=== PATIENT | female | born 1970 | race American Indian/Alaskan Native ===

== ENCOUNTER 2017-01-01 15:13 | Emergency (ER) | payer OTHER ==
[2017-01-01 15:15] VITALS: BMI 59.8
[2017-01-01 15:26] VITALS: TEMP 98.4
--- NOTE | 2017-01-01 16:33 | ED PDOC ---
Arrival/HPI - General Chief Complaint: Upper Extremity Problem/Injury Time Seen by Provider: 01/01/17 15:14 - History of Present Illness Narrative History of Present Illness (Text): 01/01/17 16:31 46 yo femlae, hx of sleep apnea, morbid obseity, presnets with left sided neck pain and shoulder pain. pt reports she woke up with symptoms. denies trauma. pt states pain worse to left lateral neck. no fevers, cp, sob, or other complaints. Past Medical History - Provider Review Nursing Documentation Reviewed: Yes - Infectious Disease Hx of Infectious Diseases: None - Cardiac Hx Congestive Heart Failure: Yes (on O2 2LPM) Hx Hypertension: Yes - Endocrine/Metabolic Hx Diabetes Mellitus Type 2: Yes - Psychiatric Hx Substance Use: No - Surgical History Hx Cardiac Catheterization: Yes Hx Section: Yes (x1) Other/Comment: R foot sx. Myomectomy - Anesthesia Hx Anesthesia: Yes Hx Anesthesia Reactions: No Hx Malignant Hyperthermia: No Family/Social History - Physician Review Nursing Documentation Reviewed: Yes Family/Social History: Unknown Family HX Smoking Status: Never Smoked Hx Alcohol Use: No Hx Substance Use: No Allergies/Home Meds Allergies/Adverse Reactions: Allergies No Known Allergies Allergy (Verified 01/01/17 15:15) Home Medications: Home Meds Medication Instructions Recorded Confirmed Fluticasone/Salmeterol [Advair 1 puff DAILY 01/01/17 01/01/17 250-50 Diskus] Furosemide [Lasix] 40 mg PO DAILY 01/01/17 01/01/17 Metoprolol Succinate [Toprol XL] 500 mg PO DAILY 01/01/17 01/01/17 Simvastatin [Simvastatin] 40 mg PO DAILY 01/01/17 01/01/17 diltiaZEM [Cardizem] 30 mg PO DAILY 01/01/17 01/01/17 Review of Systems - Review of Systems Constitutional: Normal Eyes: Normal ENT: Normal Respiratory: Normal Cardiovascular: Normal Gastrointestinal: Normal Genitourinary Female: Normal Musculoskeletal: Neck Pain, Other (shoulder pain) Skin: Normal Neurological: Normal Endocrine: Normal Hemo/Lymphatic: Normal Psychiatric: Normal Physical Exam Vital Signs Temp Pulse Resp BP Pulse Ox 01/01/17 17:06 82 17 156/86 H 98 01/01/17 16:49 89 18 158/96 H 98 01/01/17 15:21 98.4 F 96 H 18 166/105 H 100 Temperature: Afebrile Blood Pressure: Normal Pulse: Regular Respiratory Rate: Normal Appearance: Positive for: Well-Appearing, Non-Toxic, Comfortable Pain Distress: None Mental Status: Positive for: Alert and Oriented X 3 - Systems Exam Head: Present: Atraumatic, Normocephalic Pupils: Present: PERRL Extroacular Muscles: Present: EOMI Conjunctiva: Present: Normal Mouth: Present: Moist Mucous Membranes Neck: Present: Paraspinal Tenderness (left sided). No: Normal Range of Motion ( decreased 2/2 pain), MIDLINE TENDERNESS Respiratory/Chest: Present: Clear to Auscultation, Good Air Exchange. No: Respiratory Distress, Accessory Muscle Use Cardiovascular: Present: Regular Rate and Rhythm, Normal S1, S2. No: Murmurs Abdomen: Present: Normal Bowel Sounds. No: Tenderness, Distention, Peritoneal Signs Back: Present: Normal Inspection Upper Extremity: Present: Normal Inspection, NORMAL PULSES, Tenderness (mild left shoulder), Neurovascularly Intact. No: Cyanosis, Edema, Swelling Lower Extremity: Present: Normal Inspection. No: Edema Neurological: Present: GCS=15, CN II-XII Intact, Speech Normal Skin: Present: Warm, Dry, Normal Color. No: Rashes Psychiatric: Present: Alert, Oriented x 3, Normal Insight, Normal Concentration Medical Decision Making ED Course and Treatment: 01/01/17 16:33 suspect torticollis - xr pending. 01/01/17 17:00 pain improved. imaging neg as read by me. - RAD Interpretation Radiology Orders: 01/01/17 15:31 SHOULDER LEFT [RAD] Stat - Medication Orders Current Medication Orders: Discontinued Medications Cyclobenzaprine HCl (Flexeril) 10 mg PO STAT STA Stop: 01/01/17 15:28 Last Admin: 01/01/17 16:14 Dose: 10 mg Ketorolac Tromethamine (Toradol) 30 mg IM STAT STA Stop: 01/01/17 15:28 Last Admin: 01/01/17 16:15 Dose: 30 mg Disposition/Present on Arrival - Present on Arrival Any Indicators Present on Arrival: No History of DVT/PE: No History of Uncontrolled Diabetes: No Urinary Catheter: No History of Decub. Ulcer: No History Surgical Site Infection Following: None - Disposition Have Diagnosis and Disposition been Completed?: Yes Diagnosis: Torticollis Disposition: HOME/ ROUTINE Disposition Time: 05:00 Condition: STABLE Discharge Instructions (ExitCare): Cervical Strain (GEN), Shoulder Sprain (ED) , Muscle Spasm (ED) Additional Instructions: please follow up with your doctor. return to er with worsening symptoms or concerns. Prescriptions: Cyclobenzaprine [Cyclobenzaprine HCl] 10 mg PO TID PRN #21 tab PRN Reason: Muscle Spasm Lidocaine 5% [Lidoderm] 1 ea TD DAILY PRN #4 patch PRN Reason: Pain, Mild (1-3) Naproxen [Naprosyn] 500 mg PO BID PRN #14 tablet PRN Reason: Pain, Mild (1-3) Referrals: Lexie Russell MD [Primary Care Provider] - Follow up with primary [facility] [Outside] - Follow up with primary [facility] [Outside] - Follow up with primary [facility] [Outside] - Follow up with primary Forms: [employer] (Slovenian)
[2017-01-01 16:49] VITALS: O2SAT 98
[2017-01-01 17:07] VITALS: BP 156/86; PULSE 82; RESP 17
--- NOTE | 2017-01-02 10:12 | RAD ---
PROCEDURE: Radiographs of the Left Shoulder HISTORY: shoulder pain COMPARISON: No prior. FINDINGS: BONES: Normal. No fracture. JOINTS: Normal. Glenohumeral and acromioclavicular joints preserved. No osteoarthritis. SOFT TISSUES: Globular calcifications adjacent to greater trochanter consistent with calcific tendinitis. OTHER FINDINGS: None. IMPRESSION: No fracture/arthritis. Calcific tendinitis. Otherwise unremarkable.
== END 2017-01-01 17:07 | disposition home or self-care (01) ==
LOC: ED 15:13
DX: M43.6 Torticollis (principal)
CPT/HCPCS: 73030; 96372; 99284; J1885

== ENCOUNTER 2017-03-02 12:08 | Observation (INO) | payer OTHER ==
[2017-03-02 12:19] VITALS: BMI 61.7
--- NOTE | 2017-03-02 12:58 | ED PDOC ---
Arrival/HPI <Tomy Obrien - Last Filed: 03/02/17 18:12> - History of Present Illness Time/Duration: 24 hours Symptom Onset: Sudden Symptom Course: Unchanged Severity Level: Mild Activities at Onset: Rest Context: Home <Trevon Bush - Last Filed: 03/02/17 18:34> - General Time Seen by Provider: 03/02/17 12:10 - History of Present Illness Narrative History of Present Illness (Text): 03/02/17 12:50 46yo F PMH CHF, Diabetes, Hypertension, Hypercholesterolemia, LEDY on home O2 (2L ) and morbid obesity who presents with shortness of breath, non-productive cough , nasal congestion and headache since yesterday, and fevers/chills overnight. she denies any new edema or LE swelling, sick contacts, recent illness, chest pain, abdominal pain, n/v/d, urinary/bowel changes, weakness. pt uses CPAP and O2 at baseline at home. denies smoking tobacco, etoh, or other substance use. PMD: Dr. Lexei Ribera (Trevon Bush) Past Medical History - Provider Review Nursing Documentation Reviewed: Yes - Past History Past History: Non-Contributing - Infectious Disease Hx of Infectious Diseases: None - Cardiac Hx Cardiac Disorders: Yes Hx Congestive Heart Failure: Yes (on home O2 and CPAP) Hx Hyperlipemia: Yes Hx Hypertension: Yes - Pulmonary Hx Respiratory Disorders: Yes Hx Sleep Apnea: Yes - Neurological Hx Neurological Disorder: No - HEENT Hx HEENT Disorder: No - Renal Hx Renal Disorder: No - Endocrine/Metabolic Hx Endocrine Disorders: Yes Hx Diabetes Mellitus Type 2: Yes - Hematological/Oncological Hx Blood Disorders: No - Integumentary Hx Dermatological Disorder: No - Musculoskeletal/Rheumatological Hx Musculoskeletal Disorders: No - Gastrointestinal Other/Comment: morbid obesity - Genitourinary/Gynecological Hx Genitourinary Disorders: No - Psychiatric Hx Psychophysiologic Disorder: No Hx Substance Use: No - Surgical History Hx Cardiac Catheterization: Yes (NO stents) Hx Section: Yes (x1) Other/Comment: R foot sx. Myomectomy x2 - Anesthesia Hx Anesthesia: Yes Hx Anesthesia Reactions: No Hx Malignant Hyperthermia: No <Trevon Bush - Last Filed: 03/02/17 18:34> Family/Social History - Physician Review Nursing Documentation Reviewed: Yes Family/Social History: No Known Family HX Smoking Status: Never Smoked Hx Alcohol Use: No Hx Substance Use: No <Trevon Bush - Last Filed: 03/02/17 18:34> Allergies/Home Meds <Tomy Obrien - Last Filed: 03/02/17 18:12> <Trevon Bush - Last Filed: 03/02/17 18:34> Allergies/Adverse Reactions: Allergies No Known Allergies Allergy (Verified 01/01/17 15:15) Home Medications: Home Meds Medication Instructions Recorded Confirmed Fluticasone/Salmeterol [Advair 1 puff DAILY 01/01/17 01/01/17 250-50 Diskus] Furosemide [Lasix] 40 mg PO DAILY 01/01/17 01/01/17 Metoprolol Succinate [Toprol XL] 500 mg PO DAILY 01/01/17 01/01/17 Simvastatin [Simvastatin] 40 mg PO DAILY 01/01/17 01/01/17 diltiaZEM [Cardizem] 30 mg PO DAILY 01/01/17 01/01/17 Review of Systems - Physician Review All systems were reviewed & negative as marked: Yes - Review of Systems Constitutional: Fevers, Other (chills) ENT: absent: Sore Throat, Rhinorrhea Respiratory: SOB, Cough (non-productive). absent: Wheezing Cardiovascular: absent: Chest Pain, Edema Gastrointestinal: absent: Abdominal Pain, Diarrhea, Nausea, Vomiting Neurological: Headache <Trevon Bush - Last Filed: 03/02/17 18:34> Physical Exam Vital Signs Reviewed: Yes Appearance: Positive for: Well-Appearing Pain Distress: None Mental Status: Positive for: Alert and Oriented X 3 - Systems Exam Head: Present: Atraumatic, Normocephalic Pupils: Present: PERRL Extroacular Muscles: Present: EOMI Conjunctiva: Present: Normal Mouth: Present: Moist Mucous Membranes Pharnyx: No: EXUDATE, TONSILS ENLARGED, Peritonsilar Swelling, Uvular Deviation Nose (Internal): Present: Boggy. No: Purulent Mucous Neck: Present: Normal Range of Motion Respiratory/Chest: Present: Clear to Auscultation, Good Air Exchange. No: Respiratory Distress, Wheezes, Rales, Rhonchi Cardiovascular: Present: Regular Rate and Rhythm, Normal S1, S2 Abdomen: Present: Other (obese body habitus). No: Tenderness, Distention Back: Present: Normal Inspection Upper Extremity: Present: Normal Inspection, Normal ROM Lower Extremity: Present: Normal Inspection. No: Edema, CALF TENDERNESS, Carlos' s Sign Neurological: Present: CN II-XII Intact, Speech Normal, Motor Func Grossly Intact, Normal Sensory Function Skin: Present: Warm, Dry. No: Rashes Psychiatric: Present: Alert, Oriented x 3 <Trevon Bush - Last Filed: 03/02/17 18:34> Vital Signs Temp Pulse Resp BP Pulse Ox 03/02/17 18:00 84 18 168/102 H 100 03/02/17 15:47 93 H 172/110 H 03/02/17 15:25 172/110 H 03/02/17 15:02 93 H 16 170/118 H 100 03/02/17 13:20 98 H 18 146/96 H 100 03/02/17 12:57 18 96 03/02/17 12:19 98.4 F 102 H 20 148/102 H 100 Medical Decision Making - RAD Interpretation Strategic Analyst: Radiologist <Tomy Obrien - Last Filed: 03/02/17 18:12> Re-evaluation Time: 14:28 Reassessment Condition: Re-examined, Improving,but remains with symptoms ( headache) - Lab Interpretations I have reviewed the lab results: Yes - EKG Interpretation Interpreted by ED Physician: Yes Type: 12 lead EKG <Trevon Bush - Last Filed: 03/02/17 18:34> ED Course and Treatment: 03/02/17 13:22 Seen and examined with the resident. Our history and physical exam reveals a morbidly obese woman who complains of a cough congestion and URI, no sputum production and shortness of breath since yesterday. No chest pain. No fever. 03/02/17 13:26 EKG shows normal sinus rhythm rate approximately [address] or T his 03/02/17 18:12 When patient was ready for discharge blood pressure was elevated. Patient was treated with clonidine, but her blood pressure did not respond adequately. Lab work and EKG was ordered. The pressure was still not adequate and patient was placed on telemetry observation. (Tomy Obrien) 03/02/17 13:19 Impression: 46yo F presenting with URI symptoms x1 day Plan: - Reassess and disposition - CXR - O2 PRN Progress Notes: 03/02/17 16:31 pt continues to complain of headache and generalized discomfort. BP continues to be elevated 03/02/17 18:33 Dr. Buckner was contacted and accepts patient onto his service. (Trevon Bush) - Lab Interpretations Lab Results: 03/02/17 16:45 03/02/17 16:45 Lab Results 03/02/17 16:45: Sodium 143, Potassium 3.7, Chloride 100, Carbon Dioxide 36 H, Anion Gap 11, BUN 12, Creatinine 0.9, Est GFR ( Amer) > 60, Est GFR (Non- Af Amer) > 60, Random Glucose 97, Calcium 9.0, Total Bilirubin 0.5, AST 30, ALT 37, Alkaline Phosphatase 136 H, Lactate Dehydrogenase 680, Total Creatine Kinase 529 H, CK-MB (CK-2) 4.4 H, CK-MB (CK-2) % Cancelled, Troponin I 0.03, NT- Pro-B Natriuret Pep 170, Total Protein 7.3, Albumin 3.9, Globulin 3.5, Albumin/ Globulin Ratio 1.1 03/02/17 16:45: WBC 7.5, RBC 4.73, Hgb 12.8, Hct 41.5, MCV 87.7, MCH 27.1, MCHC 30.8 L, RDW 15.3 H, Plt Count 224, MPV 11.8 H, Gran % 71.6 H, Lymph % (Auto) 21.3 L, Glenn % (Auto) 5.7, Eos % (Auto) 1.3 L, Baso % (Auto) 0.1, Gran # 5.37, Lymph # 1.6, Glenn # 0.4, Eos # 0.1, Baso # 0.01 - RAD Interpretation Radiology Orders: 03/02/17 12:47 CHEST TWO VIEWS (PA/LAT) [RAD] Stat Chest 2 view shows no infiltrate or effusion or cardiomegaly (Tolerico, Tomy) - Medication Orders Current Medication Orders: Discontinued Medications Acetaminophen (Tylenol 325mg Tab) 650 mg PO STAT STA Stop: 03/02/17 14:50 Last Admin: 03/02/17 15:47 Dose: 650 mg MAR Pain/Vitals Document 03/02/17 15:47 HI (Rec: 03/02/17 15:48 HI [id number]) Pain Reassessment Is This A Pain ReAssessment? No Sleep Is patient sleeping during reassessment? 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 Ulcer: No - Disposition Have Diagnosis and Disposition been Completed?: Yes Disposition Time: 18:12 Patient Plan: Observation, Telemetry <Tomy Obrien - Last Filed: 03/02/17 18:12> - Present on Arrival History of DVT/PE: No History of Uncontrolled Diabetes: No Urinary Catheter: No History Surgical Site Infection Following: None <Trevon Bush - Last Filed: 03/02/17 18:34> - Disposition Diagnosis: Bronchitis Disposition: HOSPITALIZED Patient Problems: Current Active Problems Problem Status Onset Bronchitis Acute Condition: GOOD Discharge Instructions (ExitCare): Acute Bronchitis (ED) Prescriptions: Benzonatate [Tessalon Perles] 100 mg PO Q8 #30 sgl Albuterol HFA [Ventolin HFA 90 mcg/actuation (8 g)] 2 puff IH [id number] #1 puff Azithromycin [Zithromax] 250 mg PO DAILY #6 tab Referrals: Lexie Russell MD [Primary Care Provider] - Follow up with primary
--- NOTE | 2017-03-02 13:59 | RAD ---
HISTORY: sob COMPARISON: No prior. TECHNIQUE: Chest PA and lateral FINDINGS: LUNGS: No active pulmonary disease. PLEURA: No significant pleural effusion identified. No pneumothorax apparent. CARDIOVASCULAR: Normal. OSSEOUS STRUCTURES: No significant abnormalities. VISUALIZED UPPER ABDOMEN: Normal. OTHER FINDINGS: None. IMPRESSION: No active disease.
[2017-03-02 17:02] LABS: BASO # 0.01 K/mm3 (0.0-2.0); BASO % 0.1 % (0.0-3.0); EOS # 0.1 (0.0-0.7); EOS % 1.3 % (1.5-5.0); GRAN # 5.37 (1.4-6.5); GRAN % 71.6 % (50.0-68.0); HEMATOCRIT 41.5 % (36.0-48.0); LYMPH # 1.6 (1.2-3.4); LYMPH % 21.3 % (22.0-35.0); MEAN CELL VOLUME 87.7 fl (80.0-105.0); MEAN CORPUSCULAR HEMOGLOBIN 27.1 pg (25.0-35.0); MEAN CORPUSCULAR HGB CONC 30.8 g/dl (31.0-37.0); MEAN PLATELET VOLUME 11.8 fl (7.0-11.0); MONO # 0.4 (0.1-0.6); MONO % 5.7 % (1.0-6.0); RED CELL DISTRIBUTION WIDTH 15.3 % (11.5-14.5); WHITE BLOOD COUNT 7.5 10^3/ul (4.5-11.0)
[2017-03-02 17:11] LABS: ALB/GLOB RATIO 1.1 (1.1-1.8); ALKALINE PHOSPHATASE 136 U/L (38-126); ALT/SGPT 37 U/L (7-56); AST/SGOT 30 U/L (14-36); BILIRUBIN,TOTAL 0.5 mg/dL (0.2-1.3); BLOOD UREA NITROGEN 12 mg/dL (7-21); CARBON DIOXIDE 36 mmol/L (21-33); CHLORIDE 100 mmol/L (98-107); GFR AFRICAN-AMERICAN > 60; GLUCOSE,RANDOM 97 mg/dL (70-110); POTASSIUM 3.7 mmol/L (3.6-5.0); SODIUM 143 mmol/L (132-148); TOTAL PROTEIN 7.3 g/dL (5.8-8.3)
[2017-03-02 17:22] LABS: TROPONIN I 0.03 ng/mL
[2017-03-02] MEDS ORDERED: Lidocaine 5% Patch TD PRN (19:23)
[2017-03-02] MEDS ORDERED: Enoxaparin 80 mg Syringe SC SCH (19:30)
--- NOTE | 2017-03-02 20:42 | CT ---
EXAM: CT Head Without Intravenous Contrast EXAM DATE/TIME: 03/02/2017 7:25 PM CLINICAL HISTORY: 46 years old, female; Pain; Headache; Additional info: H/a TECHNIQUE: Axial computed tomography images of the head/brain without intravenous contrast. All CT scans at this facility use one or more dose reduction techniques, viz.: automated exposure control; ma/kV adjustment per patient size (including targeted exams where dose is matched to indication; i.e. head); or iterative reconstruction technique. COMPARISON: There are no prior studies for comparison. FINDINGS: Artifacts: Streak artifact degrades image quality. Brain: Ventricles are normal in size and configuration. There is no midline shift. There is a cavum septum pellucidum.. There are no intra-axial or extra-axial mass lesions or areas of hemorrhage. There are no abnormal fluid collections. Ambriz-white differentiation is maintained. Ventricles: See above. Bones: Cranial vault is intact. Soft tissues: unremarkable Sinuses: There is no acute sinusitis. Ears and mastoids: Middle ears and mastoids are unremarkable Orbits: Orbital contents are unremarkable. IMPRESSION:
[2017-03-02] MEDS: Enoxaparin 80 mg Syringe SC SCH (20:53)
[2017-03-02] MEDS: Arformoterol 15 mcg/2 ml Inh Sol IH SCH ×2 (20:53→21:00)
[2017-03-02] MEDS: Budesonide 0.5 mg/2 ml Inhal Susp UD IH SCH ×2 (20:54)
[2017-03-02] MEDS: Insulin Reg-HIGH-Coverage SC SCH (22:00)
--- NOTE | 2017-03-02 22:05 | CARD ---
APPROVED REPORT EKG Measurement Heart [id number] <Conclusion> Normal sinus rhythm T wave abnormality, consider lateral ischemia Abnormal ECG
[2017-03-03 00:02] VITALS: RESP 20
[2017-03-03 06:09] VITALS: O2SAT 98
[2017-03-03 06:42] LABS: HEMATOCRIT 42.4 % (36.0-48.0); MEAN CELL VOLUME 89.8 fl (80.0-105.0); MEAN CORPUSCULAR HEMOGLOBIN 27.1 pg (25.0-35.0); MEAN CORPUSCULAR HGB CONC 30.2 g/dl (31.0-37.0); MEAN PLATELET VOLUME 12.1 fl (7.0-11.0); RED CELL DISTRIBUTION WIDTH 15.4 % (11.5-14.5); WHITE BLOOD COUNT 5.7 10^3/ul (4.5-11.0)
[2017-03-03 07:11] LABS: ALB/GLOB RATIO 1.1 (1.1-1.8); BILIRUBIN,TOTAL 0.6 mg/dL (0.2-1.3); CALCIUM 8.9 mg/dL (8.4-10.5); POTASSIUM 3.8 mmol/L (3.6-5.0); TOTAL PROTEIN 7.7 g/dL (5.8-8.3)
[2017-03-03] MEDS: Arformoterol 15 mcg/2 ml Inh Sol IH SCH ×2 (07:57)
[2017-03-03] MEDS: Budesonide 0.5 mg/2 ml Inhal Susp UD IH SCH ×2 (07:58)
--- NOTE | 2017-03-03 08:04 | CP.PCM.CON ---
History of Present Illness - History of Present Illness History of Present Illness: Neurology Consult Note for Will Aviles PGY2 Reason for consult: Headache This is a 46Y female with PMH of CHF, DM, HTN, HLD, LEDY (on 2L and CPAP at home), morbid obesity who came to ED for SOB and headache x 1 day. Patient reports having dry cough and congestion for 1 day. She has a headache when she coughs that is located in the front of her head bilaterally and radiates down to her neck that last 10 minutes. Aspirin relieves her headache. She states that she sometimes gets flashes of light with the headache that go away on their own. She denies sensitivity to sound or light. She reports she has been having SOB on and off for several months. She also complains of pressure in face as well as stuffy nose. She denies CP, n/v/d, numbness/tingling , weakness, fever or chills, sick contacts or recent travel. In ED, patient was noted to have high BP that was not responding as well to Clonidine. She was admitted for further monitoring. PMH: CHF, DM, HTN, HLD, LEDY (on 2L and CPAP at home), morbid obesity PSH: myomectomy, Meds: As per MAR All: NKDA SH: Denies EtOH, drug or tobacco use Review of Systems - Review of Systems All systems: reviewed and no additional remarkable complaints except Review of Systems: + cough, congestion, headache, SOB Past Patient History - Infectious Disease Hx of Infectious Diseases: None - Past Social History Smoking Status: Never Smoked Alcohol: None Drugs: Denies Home Situation {Lives}: With Family - CARDIAC Hx Cardiac Disorders: Yes Hx Congestive Heart Failure: Yes (on home O2 and CPAP) Hx Hypertension: Yes - PULMONARY Hx Respiratory Disorders: Yes Hx Sleep Apnea: Yes - NEUROLOGICAL Hx Neurological Disorder: No - HEENT Hx HEENT Problems: No - RENAL Hx Chronic Kidney Disease: No - ENDOCRINE/METABOLIC Hx Endocrine Disorders: Yes Hx Diabetes Mellitus Type 2: Yes - HEMATOLOGICAL/ONCOLOGICAL Hx Blood Disorders: No - INTEGUMENTARY Hx Dermatological Problems: No - MUSCULOSKELETAL/RHEUMATOLOGICAL Hx Musculoskeletal Disorders: No Hx Falls: No - GASTROINTESTINAL Other/Comment: morbid obesity - GENITOURINARY/GYNECOLOGICAL Hx Genitourinary Disorders: No - PSYCHIATRIC Hx Psychophysiologic Disorder: No Hx Substance Use: No - SURGICAL HISTORY Hx Surgeries: Yes Hx Cardiac Catheterization: Yes (NO stents) Other/Comment: R foot sx. Myomectomy x2. - ANESTHESIA Hx Anesthesia: Yes Hx Anesthesia Reactions: No Hx Malignant Hyperthermia: No Meds Home Medications: Home Medication List Medication Instructions Recorded Confirmed Type Albuterol HFA [Ventolin HFA 90 2 puff IH [id number] #1 puff 03/02/17 Rx mcg/actuation (8 g)] Azithromycin [Zithromax] 250 mg PO DAILY #6 tab 03/02/17 Rx Benzonatate [Tessalon Perles] 100 mg PO Q8 #30 sgl 03/02/17 Rx Allergies/Adverse Reactions: Allergies Allergy/AdvReac Type Severity Reaction Status Date / Time No Known Allergies Allergy Verified 01/01/17 15:15 - Medications Medications: Current Medications Arformoterol Tartrate (Brovana) 15 mcg IH [id number] [facility] Last Admin: 03/02/17 20:53 Dose: 15 mcg Arformoterol Tartrate (Brovana) 15 mcg IH [id number] [facility] Last Admin: 03/02/17 21:00 Dose: Not Given Atorvastatin Calcium (Lipitor) 20 mg PO DIN [facility] Budesonide (Pulmicort Respules) 0.5 mg IH [id number] [facility] Last Admin: 03/02/17 20:54 Dose: 0.5 mg Budesonide (Pulmicort Respules) 0.5 mg IH [id number] [facility] Last Admin: 03/02/17 20:54 Dose: 0.5 mg Clonidine HCl (Catapres) 0.2 mg PO BID [facility] Last Admin: 03/02/17 20:54 Dose: 0.2 mg Diltiazem HCl (Cardizem) 30 mg PO DAILY [facility] Enoxaparin Sodium (Lovenox) 80 mg SC Q12H SAY PRN Reason: Protocol Last Admin: 03/02/17 20:53 Dose: 80 mg Fluticasone Propionate (Flonase) 1 actuation NS DAILY [facility] Furosemide (Lasix) 40 mg IVP DAILY [facility] Furosemide (Lasix) 40 mg IVP DAILY [facility] Insulin Human Regular (Humulin R High) 0 units SC ACHS [facility] PRN Reason: Protocol Last Admin: 03/02/17 22:00 Dose: Not Given Levofloxacin (Levaquin) 500 mg PO DAILY [facility] Lidocaine (Lidoderm) 1 ea TD DAILY PRN PRN Reason: Pain, Mild (1-3) Metoprolol Succinate (Toprol Xl) 500 mg PO DAILY [facility] Prednisone (Prednisone Tab) 20 mg PO DAILY [facility] Physical Exam - Constitutional Appears: No Acute Distress - Head Exam Head Exam: ATRAUMATIC, NORMAL INSPECTION, NORMOCEPHALIC - Eye Exam Eye Exam: EOMI, Normal appearance, PERRL Pupil Exam: NORMAL ACCOMODATION, PERRL - ENT Exam ENT Exam: Mucous Membranes Moist Additional comments: Tenderness to frontal sinuses bilaterally - Neck Exam Neck exam: Positive for: Normal Inspection - Respiratory Exam Respiratory Exam: Clear to Auscultation Bilateral, NORMAL BREATHING PATTERN. absent: Rales, Rhonchi, Wheezes - Cardiovascular Exam Cardiovascular Exam: REGULAR RHYTHM, +S1, +S2. absent: Gallop, Rubs, Systolic Murmur - GI/Abdominal Exam GI & Abdominal Exam: Normal Bowel Sounds, Soft. absent: Rebound, Rigid, Tenderness - Extremities Exam Extremities exam: Positive for: pedal edema (trace). Negative for: calf tenderness - Neurological Exam Neurological exam: Alert, CN II-XII Intact, Oriented x3 - Psychiatric Exam Psychiatric exam: Normal Affect, Normal Mood - Skin Skin Exam: Dry, Warm Results - Vital Signs Recent Vital Signs: Last Vital Signs Temp 98.6 F 03/03/17 06:00 Pulse 77 03/03/17 06:00 Resp 20 03/03/17 06:00 BP 122/66 03/03/17 06:00 Pulse Ox 98 03/03/17 06:00 - Labs Result Diagrams: 03/03/17 06:00 03/03/17 06:00 Labs: Laboratory Results - last 24 hr 03/02/17 03/03/17 03/03/17 21:39 06:00 06:00 WBC 5.7 D RBC 4.72 Hgb 12.8 Hct 42.4 MCV 89.8 MCH 27.1 MCHC 30.2 L RDW 15.4 H Plt Count 233 MPV 12.1 H Sodium 143 Potassium 3.8 Chloride 99 Carbon Dioxide 35 H Anion Gap 13 BUN 18 Creatinine 1.3 H Est GFR ( Amer) 54 Est GFR (Non-Af Amer) 44 POC Glucose (mg/dL) 95 Random Glucose 103 Calcium 8.9 Total Bilirubin 0.6 AST 37 H D ALT 39 Alkaline Phosphatase 128 H Total Protein 7.7 Albumin 4.0 Globulin 3.7 Albumin/Globulin Ratio 1.1 03/03/17 07:14 WBC RBC Hgb Hct MCV MCH MCHC RDW Plt Count MPV Sodium Potassium Chloride Carbon Dioxide Anion Gap BUN Creatinine Est GFR ( Amer) Est GFR (Non-Af Amer) POC Glucose (mg/dL) 106 Random Glucose Calcium Total Bilirubin AST ALT Alkaline Phosphatase Total Protein Albumin Globulin Albumin/Globulin Ratio Assessment & Plan - Assessment and Plan (Free Text) Assessment: This is a 46Y female with PMH of CHF, DM, HTN, HLD, LEDY (on 2L and CPAP at home), morbid obesity who came to ED for SOB and headache x [address] was noted to be negative. Headache is described as a migraine secondary to URI as well as high blood pressure. Plan: - Fiorecet for headache - Maintain SBP 120-130s, avoid accelerations in BP - Continue treatment of URI Thank you for this consultation Case seen, discussed and reviewed with Dr. Blount. Will Hidalgo PGY2 - Date & Time Date: 03/03/17 Time: 08:08
--- NOTE | 2017-03-03 08:16 | CON ---
PULMONARY CONSULTATION REASON FOR CONSULTATION: Asthma. REFERRING PHYSICIAN: Joesph Buckner DO HISTORY OF PRESENT ILLNESS: The patient is a 46-year-old female, with past medical history significant for asthma, diabetes mellitus, hypertension, obstructive sleep apnea, morbid obesity, who presents to [facility] with a 1-day history of increasing shortness of breath at rest, dyspnea on exertion, cough, nasal congestion, and headache. At the time of my examination (this morning), the patient is not short of breath at rest and feels much better. She does state to a persistent mild cough with no sputum production. There is no history of chest pain, coughing up of blood, or chest pain--made worse with deep respirations. There is no history of temperatures, chills or infectious exposure. There is no history of night sweats, weight loss or appetite change prior to the above events. No history of leg or calf pains. No history of syncope or diaphoresis. No history of recent travel or trauma. REVIEW OF SYSTEMS. No history of nausea, vomiting or diarrhea. No acute urinary symptoms. No new musculoskeletal complaints. Rest of the review of systems is negative. ALLERGIES: NO KNOWN ALLERGIES. SOCIAL HISTORY: Negative for tobacco and negative for alcohol. FAMILY HISTORY: No inheritable diseases. HOME MEDICATIONS: Include diltiazem, simvastatin, Advair, Naprosyn, Lasix and Zithromax. PHYSICAL EXAMINATION: GENERAL: The patient appears comfortable this morning. She is not short of breath at rest. VITAL SIGNS: Temperature is 98.6, pulse on the monitor is 81, respiratory rate 16/18, blood pressure 122/66. Oxygen saturation on BiPAP is 98%. HEENT: Normocephalic, atraumatic. NECK: No JVD. CARDIOVASCULAR: Positive S1, S2. No S3 gallop. LUNGS: Decreased breath sounds at the bases. Minimal rhonchi. Minimal wheezing. EXTREMITIES: Positive for mild edema. No cyanosis, no clubbing. Calves are nontender to palpation. GASTROINTESTINAL: Abdomen is soft, nontender and nondistended. Bowel sounds are positive. SKIN: No acute rash. NEUROLOGIC: Limited to present time. PERTINENT LABORATORY DATA: Chest x-ray was done yesterday and reviewed. There is no active disease noted. Complete metabolic profile: Carbon dioxide 36, alkaline phosphatase 136, creatine kinase 529. Rest of the metabolic profile was within normal limits. CBC: White count 7.5, hemoglobin 12.8, hematocrit 41.5, platelets of 224. IMPRESSION 1. Mild acute bronchitis. 2. Mild acute sinusitis. 3. Asthma. 4. Obstructive sleep apnea. PLAN: I did discuss the case with the nurse at length. I have also discussed the case with the patient at length, and reviewed the chart at length. The patient presents to [facility] with a 1-day history of shortness of breath, nonproductive cough, nasal congestion, and headache. I did review the chest x-ray as above. There is no active disease noted. On physical exam, there is mild bronchospasm appreciated. I will continue with the current nebulizer treatments and add a small dose of oral steroids this morning. I will also add nasal steroids this morning. Lastly, the patient was on antibiotics as an outpatient, and I will continue antibiotic coverage at this point in time. Neurologic and cardiology evaluations have been ordered. Again, the patient does feel much better this morning ,and is not short of breath. She is clinically improved. Additional pulmonary intervention will be based on the clinical status of the patient. I will discuss the above with Dr. Buckner this morning. Thank you very much for this pulmonary consultation. Mike Rodgers MD MTDJaycee
[2017-03-03] MEDS: Insulin Reg-HIGH-Coverage SC SCH ×2 (08:21→12:51)
[2017-03-03] MEDS: Enoxaparin 80 mg Syringe SC SCH (08:22)
--- NOTE | 2017-03-03 08:34 | HP ---
HISTORY OF PRESENT ILLNESS: I was called down to the emergency room to take a look at her and admitted to the hospital. She is a nice 46-year-old female, who presents with severe headache and shortness of breath. She has congestion and headaches since yesterday. Not feeling well. She has CPAP at home and oxygen at home. PAST MEDICAL HISTORY: She has a past medical history of CHF, diabetes, hypertension, hypercholesterolemia, obstructive sleep apnea, and morbidly obese. Her primary care doctor is Dr. Lexie Ribera. Oxygen at home, CPAP at home, high cholesterol, hypertension, sleep apnea, morbidly obese, and diabetes. PAST SURGICAL HISTORY: She had cardiac catheterization with no stents and a x1. She had myomectomy x2 of the right foot. FAMILY HISTORY: Hypertension, and diabetes in her family. SOCIAL HISTORY: Never smoked. No alcohol. No drugs. ALLERGIES: NO KNOWN DRUG ALLERGIES. MEDICATIONS: She is on Advair, Lasix, Toprol, simvastatin, Cardizem. I do not see any diabetes medications. I will put her on coverage. REVIEW OF SYSTEMS: She has a very severe headache. Vision is poor. No changes in hearing. No sore throat. No neck pain. No chest pain. No palpitations. There is shortness of breath and coughing. No wheezing. No abdominal pain, nausea, vomiting, constipation, or diarrhea. She has a severe headache. There are fevers. No sweating. No anxiety. PHYSICAL EXAMINATION: VITAL SIGNS: She has a 98.4 temperature, she had a 148/102 blood pressure, 100 pulse, 18 respiratory rate, 98-100% O2 sat on room air. HEENT: Head is atraumatic, normocephalic. Extraocular muscles are intact. Pupils are equally reactive to light. Mucous membranes are moist. NECK: Supple. No exudates, but the tonsils are large. Nonpalpable thyroid or could not find any lymphadenopathy either. HEART: Regular rate. Normal S1 and S2. LUNGS: Decreased breath sounds. Clear to auscultation. No wheezes. No rhonchi. No rales appreciated. ABDOMEN: Morbidly obese. No guarding, no rebound, no CVA tenderness. EXTREMITIES: Trace edema. NEUROLOGIC: GCS is 15. Cranial nerves II through XII grossly intact. Alert and oriented x2. SKIN: Warm and dry. LABORATORY DATA: She has a 143 sodium, potassium 3.7, BUN 12, creatinine 0.9, GFR is greater than 60. Sugar is 97, calcium is 9, total bilirubin is 0.58, AST is 30, ALT is 37, alkaline phosphatase 136. Lactate dehydrogenase is 680, troponin is 0.03. BNP is 170. Total protein 7.0, bilirubin is 3.9. 7.5 white count, 12.8 hemoglobin, 41.5 hematocrit with a 224 platelets. ASSESSMENT AND PLAN: She will have a consult with Cardiopulmonary and Neuro. Put back on her Lasix, we may get IV insulin coverage. We will watch her overnight. I put her clonidine 0.2 to help her with the blood pressure, hoping that works. See her for severe hypertension, and severe headache, shortness of breath, morbidly obese. Very uncomfortable. Joesph Buckner DO
[2017-03-03] MEDS ORDERED: Apap-Butalbital-Caffeine 325-50-40mg Tab PO PRN (09:18)
[2017-03-03] MEDS ORDERED: Metoprolol Succinate 50 mg XL Tab PO SCH (10:00)
[2017-03-03] MEDS ORDERED: Fluticasone-Salmeterol 250-50mcg Diskus INH SCH (10:00)
[2017-03-03] MEDS ORDERED: levoFLOXacin 500 MG TAB PO SCH (10:00)
[2017-03-03] MEDS ORDERED: Enoxaparin 40 mg Syringe SC SCH (10:00)
[2017-03-03] MEDS ORDERED: Fluticasone Nasal 50 mcg/Spray NS SCH (10:00)
[2017-03-03 11:58] VITALS: BP 113/69; TEMP 98.4
[2017-03-03 12:53] VITALS: PULSE 69
--- NOTE | 2017-03-03 15:05 | CON ---
DATE: 03/03/2017 CARDIOLOGY CONSULTATION HISTORY OF PRESENT ILLNESS: The patient is a 46-year-old woman who presents with shortness of breath and headache. PAST MEDICAL HISTORY: The patient's past medical history is free of cardiac disease. She underwent a cardiac workup at [facility] which included an echocardiogram which she states was a normal study with normal LV function. She admits to borderline diabetes mellitus. SOCIAL HISTORY: The patient does not smoke. REVIEW OF SYSTEMS: No chest pain. Her shortness of breath is improved with occasional trace edema. PHYSICAL EXAMINATION: GENERAL: The patient is morbidly obese but is in no acute distress. Blood pressure is 122/66, heart rate is in the 70s. NECK: Negative JVD. LUNGS: Without rales. HEART: With S1, S2. EXTREMITIES: Without edema. IMAGING: EKG shows nonspecific ST-T changes. LABORATORY DATA: Hemoglobin is 12.8. Chemistries, the troponin is negative x1 with a ProBNP of 1700. IMPRESSION: 1. Dyspnea. 2. No evidence for acute coronary syndrome. 3. Hypertension. 4. Borderline diabetes mellitus. 5. Morbid obesity. PLAN: Given these findings, I have discussed with the patient about the need for weight loss. She seems to be agreeable to bariatric surgery. We will arrange for an outpatient stress test given her abnormal EKG, although she has no chest pain and no evidence for LV dysfunction. Roberto Martinez MD
--- NOTE | 2017-03-04 04:07 | DS ---
HISTORY OF PRESENT ILLNESS: I saw her sitting up in bed. She seems comfortable. She is still having this headache. She is on Brovana, Cardizem, Flonase, insulin, Lasix, Levaquin, Lidoderm, Lipitor, Lovenox, prednisone, Pulmicort, and Toprol. Neurology said they thought it was a migraine. Pulmonary said to put her on some Levaquin and prednisone as the patient awaits for Cardiology's opinion. PHYSICAL EXAMINATION: VITAL SIGNS: She has 98.6 temperature, 77 pulse, 122/66 blood pressure, 20 respiratory, 98% O2 sat. HEENT: Head is atraumatic and normocephalic. Extraocular muscles intact. Throat is moist. NECK: Supple. HEART: Regular rate. LUNGS: Clear to auscultation. ABDOMEN: Morbidly obese, soft, nontender. Positive bowel sounds. EXTREMITIES: No edema. LABORATORY DATA: She had blood test with 5.7 white count, 12.8 hemoglobin, 42.4 hematocrit with 233 platelets. She had a 143 sodium, potassium 3.8, BUN 18, creatinine 1.3, GFR is 44, sugar is 103. AST is 37, ALT is 39, alkaline phosphatase 128. Troponin 0.03, BNP was 170, total protein was 7.7. She is being seen by Pulmonary, had a CAT scan of the head. We are awaiting for Cardiology, and Neurology said she can go home. IMPRESSION: There is no impression on the CAT scan of the head. It looks good. So, hopefully we can discharge her today after Dr. Martinez of Cardiology sees her. Joesph Buckner DO
== END 2017-03-03 13:53 | disposition home or self-care (01) ==
LOC: ED 12:08 → ERH 18:11 → 2RNO 21:28
PROVIDERS: ADMIT Family Medicine; ATTEND Family Medicine
DX: I11.0 Hypertensive heart disease with heart failure (principal); I50.9 Heart failure, unspecified; J20.9 Acute bronchitis, unspecified; Z99.81 Dependence on supplemental oxygen; G47.33 Obstructive sleep apnea (adult) (pediatric); E78.00 Pure hypercholesterolemia, unspecified; E66.01 Morbid (severe) obesity due to excess calories; Z68.44 Body mass index [BMI] 60.0-69.9, adult; E11.9 Type 2 diabetes mellitus without complications; G43.909 Migraine, unspecified, not intractable, without status migrainosus; J45.909 Unspecified asthma, uncomplicated; J01.90 Acute sinusitis, unspecified
CPT/HCPCS: 36415; 70450; 71020; 80053; 82550; 82553; 82948; 83615; 83880; 84484; 85025; 85027; 93005; 94640; 94660; 94760; 96372; 99285; G0378; J1650; J1940